=== PATIENT | female | born 1950 ===

== ENCOUNTER 2025-05-04 12:40 | Outpatient (AMB) | payer MEDICARE, SELFPAY ==
--- NOTE | 2025-05-04 12:50 | A.OFFVIS_ITS ---
Vital Signs 05/04/25 12:52 Height 5 ft 3 in Weight 184 lb 1.376 oz BMI 32.6 BP 142/64 H Blood Pressure Location Lt brachial Position Sitting Pulse 72 Pulse Source Pulse Oximeter Pulse Oximetry (%) 93 Oxygen Delivery Method Room Air Intake Visit Reasons: COPD Sr. Manager Marketing Required: No Accompanied by: Spouse Allergies aspirin Allergy (Unknown, Verified 05/04/25 12:54) Unknown HPI Comments Details: The patient is here for pulmonary evaluation. The patient is a 74 year woman with known COPD. She had been followed at [facility] for many years but then they stopped taking her insurance and she has been without a hoop coiler and a couple years. She has advanced COPD and chronic respiratory failure. The patient has had worsening respiratory symptoms with significant chest tightness and wheezing for the last several months. She did not up going to the ER at [facility] went her breathing got really bad. She was given a prednisone taper her breathing did improve. But right now her breathing is getting much worse again. She has a hard time walking without getting significantly winded. The patient also has issues with the cost of medications. Making it very difficult for her to afford her respiratory medications. The patient does have significant whee zing chest tightness and exam. She is given 2 DuoNeb treatments in the office she will receive Solu-Medrol. She did have a CT scan of the chest in 2022 at [facility] and it did compare her CAT scan to 1 from 2020 demonstrating stable subcentimeter pulmonary nodules she does have evidence of chronic bronchitis and also emphysema. [facility] Medical History (Updated 05/04/25 @ 20:23 by Roberth Shafer MD) Pulmonary nodules COPD (chronic obstructive pulmonary disease) Social History (Updated 05/04/25 @ 12:57 by Michaela Mello CMA) Patient Tobacco Use Status: Former Tobacco user Review of Systems Const Reports difficulty sleeping Eyes Reports no additional complaints ENT Reports nasal congestion and Reports nasal discharge Card Denies chest pain and Reports dyspnea on exertion Resp Reports chest congestion, Reports cough, Reports dyspnea on exertion and Reports wheezing GI Reports no additional complaints Musc Reports myalgias Skin/Breast Denies rash Neuro Reports no additional complaints Endo Reports no additional complaints Júnior/Lymph Reports no additional complaints Aller/Immun Reports wheezing Physical Exam Vital Signs: Last Vital Signs Pulse 72 05/04/25 12:52 BP 142/64 H 05/04/25 12:52 Pulse Ox 93 05/04/25 12:52 Oxygen Delivery Method Room Air 05/04/25 12:52 BMI result Body Mass Index 32.6 Const General: comfortable HEENT Head: Yes normocephalic Neck Neck: Yes supple Chest Chest palpation & inspection: normal inspection of the chest Resp Effort & Inspection: normal respiratory effort and prolonged expiratory phase Auscultation: rhonchi, wheezes and diminished lung sounds Cardio Heart sounds: S1 normal heart sound present and S2 normal heart sound present GI Palpation (GI): Soft to palpation Skin General skin exam: no rashes or lesions noted Extrem General: No clubbing and No cyanosis Office Procedures Nebulizer Treatment Nebulizer Treatment 28851-Ildtizdmn/MDI RX initial, or Nebulizer Subsequent Treatment Office Meds methylprednisolone sod suc(PF) 125 mg/2 mL solution for injection Performing Provider: Roberth Shafer MD Performing Location: [facility] Administered by: Es Vanegas LPN on 05/04/25 13:25 Dose Route Admin Location Dispensed Lot Number Expiration Date [facility] [place][NOTE 3] Mortgage Loan Assistant 125 mg IM R buttock 1 ea [id number] 08/07/27 0117-0661-71 [employer] Total Dispensed Waste 1 ea 0 % ipratropium 0.5 mg-albuterol 3 mg (2.5 mg base)/3 mL nebulization soln Performing Provider: Roberth Shafer MD Performing Location: [facility] Administered by: Es Vanegas LPN on 05/04/25 13:25 Dose Route Admin Location Dispensed Lot Number Expiration Date [facility] [place][NOTE 3] [employer] Loan [employer] 3 mL inhalation 3 mL [id number] 05/07/26 59535-024-09 [employer] Assessment & Plan Assessment & Plan (1) COPD (chronic obstructive pulmonary disease): Code(s): J44.9 - Chronic obstructive pulmonary disease, unspecified Category: Medical Qualifiers: COPD type: COPD with acute exacerbation Qualified Code(s): J44.1 - Chronic obstructive pulmonary disease with (acute) exacerbation (2) Pulmonary nodules: Comment: stable 2020 to 2022 Code(s): R91.8 - Other nonspecific abnormal finding of lung field Category: Medical Plan DUoneb QID Budesonide BID Start Azithromycin MWF Solumedrol 125mg IM x 1, then prednisone taper F/U 2 months Orders: Orders AMB Methylprednisolone Sod Succ Injection Today J44.9 - Chronic obstructive pulmonary disease, unspecified AMB Nebulizer Treatment Today J44.9 - Chronic obstructive pulmonary disease, unspecified Medications: New azithromycin Take 1 tablet on Saturday/Saturday/Saturday 250 mg PO 3XW 12 tabs 1RF 28 days K21.9 - Gastro-esophageal reflux disease without esophagitis ipratropium-albuterol 0.5 mg-3 mg(2.5 mg base)/3 mL 3 mL inhalation QID 360 mL 11RF 30 days J44.9 - Chronic obstructive pulmonary disease, unspecified budesonide 0.5 mg (2 mL) inhalation BID 120 mL 11RF 30 days J44.9 - Chronic obstructive pulmonary disease, unspecified prednisone PO daily; Take 6 tabs daily x 3 days, then 5 tabs x 3 days, then 4 tabs x 3 days, then 3 tabs x 3 days, then 2 tabs daily x 3 days, then 1 tab x 3 days to complete. 63 tabs 0RF 18 days Coding Level of Care Code New Pt Level 5 (71021) Diagnoses Chronic obstructive pulmonary disease with acute exacerbation J44.1 COPD type: COPD with acute exacerbation Pulmonary nodules R91.8 CPT Codes Nebulizer Treatment - Nebulizer Treatment, initial or subsequent: 50949- Nebulizer/MDI RX initial, or Nebulizer Subsequent Treatment ([id number]) Time Spent (min) 60
[2025-05-04 12:52] VITALS: BP 142/64; PULSE 72; O2SAT 93; BMI 32.6
--- OUTSIDE RECORDS SUMMARY | 2025-05-04 15:56 | XMS_ITS | Encounter Summary ---
Author Organization [facility] Address [address] [place] [address] Care Team Providers Care Education Program Manager Name Role Phone Physician, Pcp Unknown Primary Care Provider Hawa vailable Encounter Details Date Type Department Care Team (Late st Contact Info) Description 03/25/2025 Lab Requisition [facility] [address] [facility] [place] [address] Jennifer Hilario MD [address] [facility] [address] [place] [address] Acute vaginitis Social History Tobacco Use Types Packs/Day Years Used Date Smoking Tobacco: Former Cigarettes 0.5 49.2 1 - 07/08/2014 Smokeless Tobacco: Former Alcohol Use Standard Drinks/Week Comments No 0 (1 standard drink = 0.6 oz pur e alcohol) Comments Unknown Sex and Gender Information Value Date Recorded Sex Assigned at Not on file Legal Sex Female 10:15 AM EST Gender Identity Not on file Sexual Orientation Not on file documented as of this encounter Plan of Treatment Not on file documented as of this encounter Procedures Procedure Name Priority Date/Time Associated Diagnosis Comments VAGINITIS PATHOGENS BY PCR Routine 03/25/2025 12:00 AM EDT Acute vaginitis documented in this encounter Results * Vaginitis pathogens molecular study (03/25/2025 12:00 AM EDT) Trichomonas vaginalis Negative Negative 03/26/2025 12:09 PM EDT [facility] Gardnerella vaginalis Negative Negative 03/26/2025 12:09 PM EDT [facility] Juanis Species Negative Negative 12:09 PM EDT [facility] Swab Vaginal structure / Unknown 03/25/2025 03/25/2025 6:00 PM EDT us Jennifer Hilario MD LAB MICROBIOLOGY - GENER AL ORDERABLES Final Result [facility] [address] [place] [address], documented in this encounter Visit Diagnoses Diagnosis Acute vaginitis Unspecified vaginitis and vulvovaginitis documented in this encounter Care Teams Education Program Manager Relationship Specialty Start Date End Date Physician, Pcp Unknown PCP - General 03/06/25 documented as of this encounter
--- OUTSIDE RECORDS SUMMARY | 2025-05-04 15:56 | XMS_ITS ---
Author Name [facility] Organization Unknown Care Team Organization Name Specialty Phone Email Start Date End Da te [facility] KULWANT EVANGELISTA Primary Care 05/15/2022 02/24/20 24
--- OUTSIDE RECORDS SUMMARY | 2025-05-04 15:56 | XMS_ITS | Clinical Summary ---
Author Organization [facility] Address [address] [place] [address] Phone Care Team Providers Care Prism Inspector Name Role Phone Physician, Pcp Unknown Primary Care Provider Hawa vailable Allergies Active Allergy Reactions Criticality Noted Date Comments Aspirin 07/03/2011 Medications fluticasone-herman meterol (ADVAIR DISKUS) 250-50 mcg/dose diskus inhaler Inhale 1 puff by mouth 2 (two) times a day. 4 Active fluticasone propionate (FLONASE) 50 mcg/actuation nasal spray Administer 2 sprays into each nostril 1 (one) time each day. 3 Active fluticasone furoate-vilante roL (BREO ELLIPTA) 200-25 mcg/dose inhaler Inhale 1 puff by mouth 1 (one) time each day. 4 Active furosemide (LASIX) 20 mg tablet Take 1 tablet (20 mg total) by mouth 1 (one) time each day. 3 Active mirabegron (MYRBETRIQ) 25 mg 24 hr tablet Take 1 tablet (25 mg total) by mouth 1 (one) time each day. Active neomycin-colist in-hydrocortiso ne-thonzonium (CORTISPORIN TC) 3.3-3-10-0.5 mg/mL otic suspension Administer 3 drops into each ear 3 (three) times a day. Active nortriptyline (PAMELOR) 25 mg capsule Take 1 capsule (25 mg total) by mouth at bedtime. 3 Active albuterol HFA (PROAIR HFA ; PROVENTIL HFA ; VENTOLIN HFA) 90 mcg/actuation inhaler INHALE 2 PUFFS INTO THE LUNGS EVERY 6 HOURS NEEDED FOR COUGH OR WHEEZING FOR UP TO 30 DAYS 8.5 each 2 4 Active Linzess 290 mcg capsule Take 1 capsule (290 mcg total) by mouth 1 (one) time each day. 4 Active naproxen (NAPROSYN) 500 mg tablet Take 1 tablet (500 mg total) by mouth 1 (one) time each day. with food 4 Active losartan (COZAAR) 50 mg tablet TAKE 1 TABLET BY MOUTH EVERY DAY 30 tablet 5 5 Active methocarbamoL (ROBAXIN) 500 mg tablet Take 1 tablet (500 mg total) by mouth 1 (one) time each day if needed for muscle spasms. 30 tablet 3 5 Active traZODone (DESYREL) 100 mg tablet Take 1 tablet (100 mg total) by mouth at bedtime. at bedtime 90 tablet 1 5 Active albuterol 2.5 mg /3 mL (0.083 %) nebulizer solution TAKE 1 VIAL BY NEBULIZATION EVERY 4 HOURS NEEDED FOR WHEEZING FOR UP TO 30 DAYS. 360 mL 1 5 Active amLODIPine (NORVASC) 5 mg tablet TAKE 1 TABLET BY MOUTH EVERY DAY 90 tablet 1 5 Active Active Problems Problem Noted Date Diagnosed Date Edema 03/16/2021 Hypertension 03/16/2021 Abnormal glucose 02/02/2021 Depression 04/01/2018 Pulmonary emphysema ([facility] V24, [facility] V28) 0 04/01/2018 COPD (chronic obstructive pu lmonary disease) ([facility] V24, [facility] V28) 01/30/2018 Type 2 diabetes mellitus without complication Overview (04/07/2025): 04/07/25 Regulatory IMO Update Bipolar disorder ([facility] V24, [facility] V28) 03/2018 Anxiety 03/26/2017 Asthma 03/26/2017 GERD (gastroesophageal reflux disease) 7 Panic attacks 03/26/2017 Irritable bowel syndrome 02/14/2017 Obstructive sleep apnea syndrome 02/14/2017 Pulmonary nodule 10/08/2016 Gait disturbance 07/19/2016 Helicobacter pylori infection 07/12/2016 Bowel incontinence 01/31/2015 Overview (04/22/2024): And urinary incontinence 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 [address] [place] [address] Demarco Wiggins MD Acute exacerbation of chronic obstructive pulmonary disease (COPD) [place] [place] [facility] [place] (Primary Dx); Hypomagnesemia; Hypertension, unspecified type Discharge Disposition: Home or Self Care 02/26/2025 Telephone Pulmonology - [place] [address] [facility] [address] [place] [address] Marietta Ty MD from Last 3 Months Immunizations Immunization Administration Dates Next Due Influenza trivalent, 0.5mL ( Fluad) 65yo and older 02/21/2023,05/05/2018 [employer] SARS-CoV-2 COVID-19, mRNA, LNP-S, preservative free 04/04/2023,08/04/2021,11/25/2020,11/04 Pneumococcal conjugate 13 va lent (Prevnar 13, PCV13) 2mo and older 04/29/2015 Pneumococcal polysaccharide 23 valent (Pneumovax 23) 2yo and older 08/08/2011 Surgical History Surgery Date Site/Laterality Comments KNEE SURGERY Left PROCEDURE: HISTORICAL KNEE SURGERY; COMMENT: arthroscopy HYSTERECTOMY PROCEDURE: HISTORICAL TOTAL HYSTERECTOMY WITH BSO COLONOSCOPY 06/15/2020 PROCEDURE: HISTORICAL COLONOSCOPY; COMMENT: negative Medical History Medical History Date Comments Allergic rhinitis 11/22/2011 DX:Allergic rh initis 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 DX:A nal sphincter incompetence Anxiety 03/26/2017 DX:Anxiety Asthma 03/26/2017 DX:Asthma Bipolar disorder ([facility] V2 4, [facility] [place]) 01/13/2018 DX:Bipolar disorder ([facility]) Bowel incontinence 01/31/2015 DX:Bowel inco ntinence; COMMENT: And urinary incontinence COPD (chronic obstructive pu lmonary disease) [place] [place] [facility] [place]) 01/30/2018 DX:COPD (chronic o bstructive pulmonary disease) ([facility]) Depression 04/01/2018 DX:Depression Fatty liver 03/29/2014 DX:Fatty liver Gait disturbance 07/19/2016 DX:Gait disturb ance GERD (gastroesophageal reflu x disease) 03/26/2017 DX:GERD (gastroesophageal re flux disease) Helicobacter pylori infection 07/12/2016 DX :Helicobacter pylori infection Insomnia 04/14/2013 DX:Insomnia Irritable bowel syndrome 02/14/2017 DX:Irri table bowel syndrome Obstructive chronic bronchit is ([facility] [place] [facility] [place]) 04/14/2013 DX:Obstructive chronic bron chitis (HCC) Obstructive sleep apnea 02/14/2017 DX:Obstr uctive sleep apnea Panic attacks 03/26/2017 DX:Panic attacks Pulmonary emphysema ([facility] [place], [facility] [place]) 04/01/2018 DX:Pulmonary emphysema ([facility]) Pulmonary nodule 10/08/2016 DX:Pulmonary no dule Type 2 diabetes mellitus wit hout complication 01/30/2018 DX:Type 2 diabetes mellitus without complication (HCC) History of hepatitis B virus infection 04/24/2018 DX:History of hepatitis B vi charisse infection Social History Tobacco Use Types Packs/Day Years [...] on file Sexual Orientation Not on file Obstetrics History Last Filed Vital Signs Vital Sign Reading Time Taken Comments Blood Pressure 151/52 03/06/2025 6:39 PM EDT Pulse 88 03/06/2025 6:39 PM EDT Temperature 37.1 C (98.7 F) 03/06/2025 6:39 PM EDT Respiratory Rate 22 03/06/2025 6:39 PM EDT Oxygen Saturation 94% 03/06/2025 6:39 PM EDT Inhaled Oxygen Concentration - - Weight 88 kg (194 lb) 03/06/2025 2:15 PM EDT Height 160 cm (5' 3 ) 03/06/2025 2:15 PM EDT Body Mass Index 34.37 03/06/2025 2:15 PM EDT Plan of Treatment Health Maintenance Due Date Last Done Comments Diabetes: Annual Foot Exam 1960 Diabetes: Annual Retina Eye Exam 1960 Lung Cancer Screening (Low Dose CT) 06/11/2022 Osteoporosis Screening (Bone Density Screening) 06/11/2022 Social Influencers of Health Screening 06/11/2022 Depression Screening 07/08/2024 08/22/2023 Falls Risk Assessment 08/22/2024 08/22/2023 Medicare Annual Wellness Visit 08/22/2024 08/22/2023 COVID-19 Vaccine ( season) 2025 04/18/2024, 09/14/2023, 04/04/2023, Additional history exists Influenza Vaccine (#1) 2025 , 02/21/2023, 04/24/2022, Additional history exists Diabetes: Blood Sugar Control Test (HGBA1C) 08/19/2025 02/16/2025, 10/15/2024, 03/12/2024, Additional history exists Diabetes: Annual Urine Albumin-Creatinine Ratio (uACR) 10/15/2025 10/15/2024 Breast Cancer Screening 01/22/2026 01/23/20 24, 10/18/2022, 10/04/2021, Additional history exists Diabetes: Annual GFR (Glomerular Filtration Rate) 03/06/2026 03/06/2025, 02/16/2025, 10/15/2024, Additional history exists Hypertension/CHF/CAD Annual BMP Blood Test 03/06/2026 03/06/2025, 02/16/2025, 10/15/2024, Additional history exists Cholesterol Screening (Lipid Panel) 10/15/2029 10/15/2024, 03/12/2024, 03/12/2024 Colorectal Cancer Screening: Colonoscopy 06/15/2030 06/15/2020 DTaP,Tdap,and Td Vaccines (2 - Td or Tdap) 08/29/2034 08/29/2024 Pneumococcal Vaccine: 50+ Years Completed 04/24/2022, 04/29/2015, 08/08/2011 RSV Immunization Adult Patients Completed 06/04/2023 Hepatitis C Screening Completed 09/06/2023 Zoster Vaccines Completed 09/14/2023, 12/06, 03/22/2016 HIB Vaccines Aged Out No longer eligi ble based on patient's age to complete this topic HPV Vaccines Aged Out No longer eligi ble based on patient's age to complete this topic Hepatitis A Vaccines Aged Out No long er eligible based on patient's age to complete this topic Hepatitis B Vaccines Aged Out No long er eligible based on patient's age to complete this topic IPV Vaccines Aged Out No longer eligi ble based on patient's age to complete this topic MMR Vaccines Aged Out No longer eligi ble based on patient's age to complete this topic Meningococcal ACWY Vaccine Aged Out N o longer eligible based on patient's age to complete this topic Meningococcal B Vaccine Aged Out No l onger eligible based on patient's age to complete this topic RSV Immunization Patients Under 20 months Aged Out No longer eligible based on patient's age to complete this topic Varicella Vaccines Aged Out No longer eligible based on patient's age to complete this topic Procedures Procedure Name Priority Date/Time Associated Diagnosis Comments VAGINITIS PATHOGENS BY PCR Routine 03/25/2025 12:00 AM EDT Acute vaginitis ECG ANNOTATED 03/09/2025 RHYTHM ECG, REPORT Routine 03/06/2025 6: 24 PM EDT CULTURE BLOOD STAT 03/06/2025 4:31 PM EDT RESPIRATORY VIRUS PANEL MOLECULAR STUDY STAT 03/06/2025 4:08 PM EDT B-TYPE NATRIURETIC PEPTIDE STAT 03/06/2025 4:07 PM EDT PROTHROMBIN TIME WITH INR STAT 03/06/2025 4:07 PM EDT LACTATE, WITH REFLEX STAT 03/06/2025 4:07 PM EDT TROPONIN I HIGH SENSITIVITY Timed 03/06/2025 4:07 PM EDT CULTURE BLOOD STAT 03/06/2025 4:07 PM EDT XR CHEST 2 VIEWS STAT 03/06/2025 2:48 PM EDT ECG 12-LEAD STAT 03/06/2025 2:40 PM EDT MAGNESIUM STAT Add-on 03/06/2025 2:31 PM EDT HEPATIC FUNCTION PANEL STAT Add-on 03/06/2025 2:31 PM EDT CBC WITH AUTO DIFFERENTIAL STAT 03/06/2025 2:31 PM EDT TROPONIN I HIGH SENSITIVITY Timed 03/06/2025 2:31 PM EDT BASIC METABOLIC PANEL STAT 03/06/2025 2:31 PM EDT CBC AND DIFFERENTIAL STAT 03/06/2025 2:31 PM EDT HO URINE CULTURE TUBE Routine 02/16/2025 12:12 PM EDT Acute hemorrhagic cystitis Diabetes mellitus ([facility] V24, [facility] V28) Encounter for general adult medical examination with abnormal findings Unspecified urinary incontinence URINALYSIS WITH REFLEX MICROSCOPIC AND CULTURE Routine 02/16/2025 12:12 PM EDT Acute hemorrhagic cystitis Diabetes mellitus ([facility] V24, [facility] V28) Encounter for general adult medical examination with abnormal findings Unspecified urinary incontinence URINALYSIS WITH REFLEX MICROSCOPIC AND CULTURE Routine 02/16/2025 12:12 PM EDT Acute hemorrhagic cystitis Diabetes mellitus ([facility] V24, [facility] V28) Encounter for general adult medical examination with abnormal findings Unspecified urinary incontinence HEMOGLOBIN A1C Routine 02/16/2025 12:12 PM EDT Acute hemorrhagic cystitis Diabetes mellitus ([facility] V24, [facility] V28) Encounter for general adult medical examination with abnormal findings Unspecified urinary incontinence COMPLETE BLOOD COUNT Routine 02/16/2025 12:12 PM EDT Acute hemorrhagic cystitis Diabetes mellitus ([facility] V24, [facility] V28) Encounter for general adult medical examination with abnormal findings Unspecified urinary incontinence COMPREHENSIVE METABOLIC PANEL Routine 02/16/2025 12:12 PM EDT Acute hemorrhagic cystitis Diabetes mellitus ([facility] V24, [facility] V28) Encounter for general adult medical examination with abnormal findings Unspecified urinary incontinence CULTURE URINE Routine 02/16/2025 12:12 PM EDT Acute hemorrhagic cystitis Diabetes mellitus ([facility] V24, [facility] V28) Encounter for general adult medical examination with abnormal findings Unspecified urinary incontinence MICROALBUMIN CREATININE URINE RATIO Routine 10/15/2024 3:17 PM EDT Routine medical exam LIPID PANEL WITH REFLEX TO DIRECT LDL Routine 10/15/2024 3:08 PM EDT Routine medical exam [facility] SCREENING DIGITAL Routine 01/23/2024 8:48 AM EDT Encounter for screening mammogram for malignant neoplasm of breast HEPATITIS C SCREENING Routine 09/06/2023 DEPRESSION SCREENING Routine 08/22/2023 FALLS RISK ASSESSMENT Routine 08/22/2023 COLONOSCOPY Routine 06/15/2020 from Last 3 Months or Most Recently Relevant to Health Maintenance Results * Vaginitis pathogens molecular study (03/25/2025 12:00 AM EDT) Trichomonas vaginalis Negative Negative 03/26/2025 12:09 PM EDT [facility] Gardnerella vaginalis Negative Negative 03/26/2025 12:09 PM EDT [facility] Juanis Species Negative Negative 12:09 PM EDT [facility] Swab Vaginal structure / Unknown 03/25/2025 03/25/2025 6:00 PM EDT Jennifer Hilario MD LAB MICROBIOLOGY - GENER AL ORDERABLES Final Result [facility] [address] [place] [address], [place] [phone] * ECG-Annotated (03/09/2025) us Provider Onbase ECG ORDERABLES Final Result * RHYTHM ECG, REPORT (03/06/2025 6:24 PM EDT) Narrative Demarco Wiggins MD - 03/06/2025 6:24 PM EDT Demarco Wiggins MD 03/06/2025 6:32 PM ECG Rhythm Interpretation and Report Date/Time: 03/06/2025 6:24 PM Performed by: Demarco Wiggins MD Authorized by: Demarco Wiggins MD ECG interpreted by ED Physician in the absence of a tank car repairer: yes Previous ECG: Previous ECG: Compared to current Similarity: Changes noted Interpretation: Interpretation: non-specific Quality: Tracing quality: Limited by artifact Rate: ECG rate assessment: normal Rhythm: Rhythm: sinus rhythm Ectopy: Ectopy: PVCs QRS: QRS axis: Normal Comments: EKG shows sinus rhythm at 87 and frequent unifocal PVCs, with no ST changes, no T wave inversions, normal axis, poor R wave progression, interval development of ventricular ectopy compared with EKG from 05/18/2023, otherwise unchanged, independently reviewed and interpreted contemporaneously by me is an abnormal but not necessarily ischemic EKG. us Demarco Wiggins MD ECG ORDERABLES Final Result * Blood Culture, Peripheral #2 (03/06/2025 4:31 PM EDT) Only the most recent of2 resultswithin the time period is included. [facility] Culture, Blood No growth at 5 days 03/11/2025 5:01 PM EDT [facility] Blood Venous blood specimen / Unknown Venipuncture / Unknown 03/06/2025 4:31 PM EDT 03/06/2025 4:34 PM EDT us Demarco Wiggins MD LAB MICROBIOLOGY - GENERAL ORD ERABLES Final Result [facility] [address] [place] [address], [place] [phone] * Respiratory virus panel molecular study (03/06/2025 4:08 PM EDT) [facility] Adenovirus Detection by PCR Not Detected Not Detected LAB MICROBIOLOGY METHOD 03/06/2025 5:10 PM EDT [facility] Influenza A PCR Not Detected Not Detected LAB MICROBIOLOGY METHOD 03/06/2025 5:10 PM EDT [facility] Influenza B PCR Not Detected Not Detected LAB MICROBIOLOGY METHOD 03/06/2025 5:10 PM EDT [facility] Coronavirus 229E Not Detected Not Detected LAB MICROBIOLOGY METHOD 03/06/2025 5:10 PM EDT [facility] Coronavirus HKU1 Not Detected Not Detected LAB MICROBIOLOGY METHOD 03/06/2025 5:10 PM EDT [facility] Coronavirus OC43 Not Detected Not Detected LAB MICROBIOLOGY METHOD 03/06/2025 5:10 PM EDT [facility] Coronavirus NL63 Not Detected Not Detected LAB MICROBIOLOGY METHOD 03/06/2025 5:10 PM EDT [facility] Parainfluenza Virus 1 Not Detected Not Detected LAB MICROBIOLOGY METHOD 03/06/2025 5:10 PM EDT [facility] Parainfluenza Virus 2 Not Detected Not Detected LAB MICROBIOLOGY METHOD 03/06/2025 5:10 PM EDT [facility] Parainfluenza Virus 3 Not Detected Not Detected LAB MICROBIOLOGY METHOD 03/06/2025 5:10 PM EDT [facility] Parainfluenza Virus 4 Not Detected Not Detected LAB MICROBIOLOGY METHOD 03/06/2025 5:10 PM EDT [facility] RSV PCR Not Detected Not Detected LAB MICROBIOLOGY METHOD 03/06/2025 5:10 PM EDT [facility] Human Metapneumovirus A and B Not Detected Not Detected LAB MICROBIOLOGY METHOD 03/06/2025 5:10 PM EDT [facility] Rhinovirus/Entero virus Not Detected Not Detected LAB MICROBIOLOGY METHOD 03/06/2025 5:10 PM EDT [facility] Bordetella pertussis Not Detected Not Detected LAB MICROBIOLOGY METHOD 03/06/2025 5:10 PM EDT [facility] Bordetella parapertussis Not Detected Not Detected LAB MICROBIOLOGY METHOD 03/06/2025 5:10 PM EDT [facility] Mycoplasma pneumo by PCR Not Detected Not Detected LAB MICROBIOLOGY METHOD 03/06/2025 5:10 PM EDT [facility] Chlamydia pneumoniae Not Detected Not Detected LAB MICROBIOLOGY METHOD 03/06/2025 5:10 PM EDT [facility] SARS COV-2 Not Detected Not Detected LAB MICROBIOLOGY METHOD 03/06/2025 5:10 PM EDT [facility] Swab Nasopharyngeal structure / Unknown Non-blood Collection / Unknown 03/06/2025 4:08 PM EDT 03/06/2025 4:13 PM EDT [facility] - 03/06/2025 5:10 PM EDT Testing was performed using the [employer] Respiratory Pathogen PCR Assay. All results must be correlated with the clinical findings. Results should not be used as the sole basis for diagnosis. False Negative results may occur from the presence of sequence variants in the region targeted by the assay or the presence of inhibitors. Results may be affected by concurrent antiviral/antimicrobial therapy or levels of organisms that are below the limit of detection. us Demarco Wiggins MD LAB MICROBIOLOGY - GENERAL ORD ERABLES Final Result Performing Organization Address [facility]/ZIP Co de Phone Number [facility] [address] [place] [address], [place] [phone] * Lactate, with reflex (03/06/2025 4:07 PM EDT) [facility] LACTIC ACID 1.1 0.4 - 2.0 mmol/L LAB CHEMISTRY METHOD 03/06/2025 4:41 PM EDT [facility] Blood Venous blood specimen / Unknown Venipuncture / Unknown 03/06/2025 4:07 PM EDT 03/06/2025 4:11 PM EDT us Demarco Wiggins MD LAB BLOOD ORDERABLES Final Res ult Performing Organization Address [facility]/ZIP Co de Phone Number [facility] [address] [place] [address], [place] [phone] * Troponin I high sensitivity (03/06/2025 4:07 PM EDT) Only the most recent of2 resultswithin the time period is included. [facility] High Sensitivity Troponin I 9 <=54 ng/L LAB CHEMISTRY METHOD 03/06/2025 4:41 PM EDT [facility] Blood Venous blood specimen / Unknown Venipuncture / Unknown 03/06/2025 4:07 PM EDT 03/06/2025 4:13 PM EDT Narrative [facility] - 03/06/2025 4:41 PM EDT High levels of biotin in samples may falsely decrease hsTroponin values. Use caution when interpreting hsTroponin results in patients taking biotin who exhibit renal impairment (eGFR <60) or in patients taking more than 20 mg/day of biotin. us Demarco Wiggins MD LAB BLOOD ORDERABLES Final Res ult Performing Organization Address City/[facility]/ZIP Co de Phone Number [facility] [address] [place] [address], [place] [phone] * Prothrombin time with INR (03/06/2025 4:07 PM EDT) Pathologist [facility] Protime 11.6 10.6 - 13.9 sec LAB COAGULATION METHOD 03/06/2025 5:00 PM EDT [facility] INR 0.9 LAB COAGULATION METHOD 03/06/2025 5:00 PM EDT [facility] Blood Venous blood specimen / Unknown Venipuncture / Unknown 03/06/2025 4:07 PM EDT 03/06/2025 4:13 PM EDT us Demarco Wiggins MD LAB BLOOD ORDERABLES Final Res ult Performing Organization Address [facility] Co de Phone Number [facility] [address] [place] [address], [place] [phone] * B-type natriuretic peptide (03/06/2025 4:07 PM EDT) Pathologist [facility] BNP 12 <=100 pcg/mL LAB CHEMISTRY METHOD 03/06/2025 4:48 PM EDT [facility] Blood Venous blood specimen / Unknown Venipuncture / Unknown 03/06/2025 4:07 PM EDT 03/06/2025 4:13 PM EDT us Demarco Wiggins MD LAB BLOOD ORDERABLES Final Res ult Performing Organization Address City/[facility]/ZIP Co de Phone Number [facility] [address] [place] [address], [place] [phone] * XR Chest 2 Views (03/06/2025 2:48 PM EDT) Anatomical Region Laterality Modality Body Radiographic Hailey ging 03/06/2025 3:12 PM EDT Impressions 03/06/2025 3:14 PM EDT No acute pneumonia. No alveolar edema. Vascular congestion might be partially obscured if there is underlying hyperinflation. -------- FINAL REPORT -------- Dictated By: Aftab Alfonso Dictated Date: 03/06/2025 15:12 ET Assigned Physician: Aftab Alfonso Reviewed and Electronically Signed By: Aftab Alofnso Signed Date: 03/06/2025 15:14 ET Workstation ID: [id number] Transcribed By: Self Edit Transcribed Date: 03/06/2025 15:12 ET Narrative 03/06/2025 3:14 PM EDT EXAMINATION: CHEST CLINICAL INFORMATION: Dyspnea COMPARISON: Frontal view 05/18/23 TECHNIQUE: 2 views of the chest FINDINGS: Mild rotation toward the left. There is some calcification of the aortic arch. The cardiac size is within normal limits and unchanged. No mediastinal mass demonstrated. The central vessels are prominent but there is no alveolar edema. The lung volumes are maintained. There is some flattening of the diaphragm with a wide AP diameter of the chest. There is no consolidation. There is some apical thickening which is unchanged and likely postinflammatory. There is osteopenia. There is a surgical anchor associated with the right proximal humerus and a small amount of adjacent soft tissue calcification. Procedure Note Aftab Alfonso MD - 03/06/2025 EXAMINATION: CHEST CLINICAL INFORMATION: Dyspnea COMPARISON: Frontal view 05/18/23 TECHNIQUE: 2 views of the chest FINDINGS: Mild rotation toward the left. There is some calcification of the aorticarch. The cardiac size is within normal limits and unchanged. Nomediastinal mass demonstrated. The central vessels are prominent but thereis no alveolar edema. The lung volumes are maintained. There is someflattening of the diaphragm with a wide AP diameter of the chest. There is no consolidation. There is some apical thickening which isunchanged and likely postinflammatory. There is osteopenia. There is a surgical anchor associated with the rightproximal humerus and a small amount of adjacent soft tissuecalcification. IMPRESSION: No acute pneumonia. No alveolar edema. Vascular congestion might be partially obscured if there is underlyinghyperinflation. -------- FINAL REPORT -------- Dictated By: Aftab Alfonso Dictated Date: 03/06/2025 15:12 ET Assigned Physician: Aftab Alfonso Reviewed and Electronically Signed By: Aftab Alfonso Signed Date: 03/06/2025 15:14 ET Workstation ID: [id number] Transcribed By: Self Edit Transcribed Date: 03/06/2025 15:12 ET Demarco Wiggins MD IMG XR PROCEDURES Final Result * ECG 12 lead (03/06/2025 2:40 PM EDT) Ventricular Rate ECG 86 BPM GEMUSE Atrial Rate 86 BPM GEMUSE P-R Interval 170 ms GEMUSE QRS Duration 76 ms GEMUSE Q-T Interval 366 ms GEMUSE QTc 437 ms GEMUSE P Wave [place] 119 degrees GEMUSE R [place] 9 degrees GEMUSE T [place] 53 degrees GEMUSE ECG Interpretation Normal sinus rhythm Junctional ST depression, probably normal Borderline ECG When compared with ECG of 06-MAR-2025 14:39, (unconfirmed) Sinus rhythm has replaced Junctional rhythm Confirmed by Augie LAWSON JAMES ([id number]) on 03/07/2025 3:31:46 PM GEMUSE 03/06/2025 2:40 PM EDT 03/07/2025 3:31 PM EDT Demarco Wiggins MD ECG ORDERABLES Final Result GEMUSE * (ABNORMAL) CBC auto differential (03/06/2025 2:31 PM EDT) WBC 8.9 4.8 - 10.8 K/[facility] LAB HEMETOLOGY METHOD 03/06/2025 2:43 PM EDT [facility] RBC 4.90(H) 3.80 - 4.80 M/[facility] LAB HEMETOLOGY METHOD 03/06/2025 2:43 PM EDT [facility] Hemoglobin 15.1 11.5 - 16.0 g/dL LAB HEMETOLOGY METHOD 03/06/2025 2:43 PM [facility] Hematocrit 45.9 35.0 - 47.0 % LAB HEMETOLOGY METHOD 03/06/2025 2:43 PM [facility] MCV 93.7 79.0 - 98.0 FL LAB HEMETOLOGY METHOD 03/06/2025 2:[facility] MCH 30.8 27.0 - 32.0 pcg LAB HEMETOLOGY METHOD 03/06/2025 2:43 PM [facility] MCHC 32.9 32.0 - 37.0 g/dL LAB HEMETOLOGY METHOD 03/06/2025 2:43 PM [facility] RDW 13.0 11.0 - 15.0 % LAB HEMETOLOGY METHOD 03/06/2025 2:43 PM [facility] Platelets 255 130 - 400 K/mcL LAB HEMETOLOGY METHOD 03/06/2025 2:43 PM [facility] MPV 10.6 7.0 - 11.0 FL LAB HEMETOLOGY METHOD 03/06/2025 2:43 PM [facility] NRBC 0.0 <1.0 % LAB HEMETOLOGY METHOD 03/06/2025 2:43 PM [facility] NRBC Absolute 0.00 <0.10 K/mcL LAB HEMETOLOGY METHOD 03/06/2025 2:43 PM [facility] Neutrophils Relative 58.7 % LAB HEMETOLOGY METHOD 03/06/2025 2:43 PM [facility] Lymphocytes Relative 28.4 % LAB HEMETOLOGY METHOD 03/06/2025 2:43 PM [facility] Monocytes Relative 6.1 % LAB HEMETOLOGY METHOD 03/06/2025 2:43 PM EDT [facility] Eosinophils Relative 5.5 % LAB HEMETOLOGY METHOD 03/06/2025 2:43 PM EDT [facility] Basophils Relative 0.7 % LAB HEMETOLOGY METHOD 03/06/2025 2:43 PM EDT [facility] Immature Granulocytes Relative 0.6 % LAB HEMETOLOGY METHOD 03/06/2025 2:43 PM EDT [facility] Neutrophils Absolute 5.24 1.50 - 7.00 K/mcL LAB HEMETOLOGY METHOD 03/06/2025 2:43 PM EDT [facility] Lymphocytes Absolute 2.53 1.00 - 5.00 K/mcL LAB HEMETOLOGY METHOD 03/06/2025 2:43 PM EDT [facility] Monocytes Absolute 0.54 0.20 - 1.00 K/mcL LAB HEMETOLOGY METHOD 03/06/2025 2:43 PM EDT [facility] Eosinophils Absolute 0.49 0.00 - 0.50 K/mcL LAB HEMETOLOGY METHOD 03/06/2025 2:43 PM EDT [facility] Basophils Absolute 0.06 0.00 - 0.20 K/mcL LAB HEMETOLOGY METHOD 03/06/2025 2:43 PM EDT [facility] Immature Granulocytes Absolute 0.05(H) 0.00 - 0.03 K/mcL LAB HEMETOLOGY METHOD 03/06/2025 2:43 PM EDT [facility] Blood Venous blood specimen / Unknown Venipuncture / Unknown 03/06/2025 2:31 PM EDT 03/06/2025 2:39 PM EDT us Demarco Wiggins MD LAB BLOOD ORDERABLES Final Res ult [facility] [address] [place] [address], [place] [phone] * (ABNORMAL) Magnesium (03/06/2025 2:31 PM EDT) [facility] Magnesium 1.7(L) 1.9 - 2.6 mg/dL LAB CHEMISTRY METHOD 03/06/2025 5:17 PM EDT [facility] Blood Venous blood specimen / Unknown Venipuncture / Unknown 03/06/2025 2:31 PM EDT 03/06/2025 2:39 PM EDT Demarco Wiggins MD LAB BLOOD ORDERABLES Final Res ult [facility] [address] [place] [address], [place] [phone] * (ABNORMAL) Hepatic function panel (03/06/2025 2:31 PM EDT) [facility] Total Protein 7.4 6.0 - 8.0 g/dL LAB CHEMISTRY METHOD 03/06/2025 5:17 PM EDT [facility] Albumin 4.1 3.2 - 5.0 g/dL LAB CHEMISTRY METHOD 03/06/2025 5:17 PM EDT [facility] Total Bilirubin 0.6 0.0 - 1.4 mg/dL LAB CHEMISTRY METHOD 03/06/2025 5:17 PM EDT [facility] Bilirubin, Direct 0.2 0.0 - 0.3 mg/dL LAB CHEMISTRY METHOD 03/06/2025 5:17 PM EDT [facility] Bilirubin, Indirect 0.4 0.0 - 1.1 mg/dL LAB CHEMISTRY METHOD 03/06/2025 5:17 PM EDT [facility] ALT (SGPT) 66(H) 10 - 60 unit/L LAB CHEMISTRY METHOD 03/06/2025 5:17 PM EDT [facility] AST (SGOT) 57(H) 10 - 42 unit/L LAB CHEMISTRY METHOD 03/06/2025 5:17 PM EDT [facility] Alkaline Phosphatase 93 42 - 121 unit/L LAB CHEMISTRY METHOD 03/06/2025 5:17 PM [facility] Blood Venous blood specimen / Unknown Venipuncture / Unknown 03/06/2025 2:31 PM EDT 03/06/2025 2:39 PM EDT us Demarco Wiggins MD LAB BLOOD ORDERABLES Final Res ult [facility] [address] [place] [address], [place] [phone] * (ABNORMAL) Basic metabolic panel (03/06/2025 2:31 PM EDT) Sodium 137 133 - 145 mmol/L LAB CHEMISTRY METHOD 03/06/2025 3:02 PM [facility] Potassium 4.6 3.5 - 5.5 mmol/L LAB CHEMISTRY METHOD 03/06/2025 3:02 PM [facility] Chloride 104 96 - 110 mmol/L LAB CHEMISTRY METHOD 03/06/2025 3:02 PM [facility] CO2 26 21 - 32 mmol/L LAB CHEMISTRY METHOD 03/06/2025 3:02 PM [facility] Anion Gap 7 3 - 11 LAB CHEMISTRY METHOD 03/06/2025 3:02 PM [facility] Glucose 115(H) 70 - 100 mg/dL LAB CHEMISTRY METHOD 03/06/2025 3:02 PM [facility] BUN 24 5 - 25 mg/dL LAB CHEMISTRY METHOD 03/06/2025 3:02 PM [facility] Creatinine 1.04 0.50 - 1.10 mg/dL LAB CHEMISTRY METHOD 03/06/2025 3:02 PM EDT [facility] eGFR 57(L) >=60 mL/min/1. 73m2 LAB CHEMISTRY METHOD 03/06/2025 3:02 PM EDT [facility] Comment:Calculation based on the Chronic Kidney Disease Epidemiology Collaboration (CKD-EPI) equation refit without adjustment for race. BUN/Creatinine Ratio 23.1 LAB CHEMISTRY METHOD 03/06/2025 3:02 PM EDT [facility] Calcium 9.7 8.5 - 10.5 mg/dL LAB CHEMISTRY METHOD 03/06/2025 3:02 PM EDT [facility] Blood Venous blood specimen / Unknown Venipuncture / Unknown 03/06/2025 2:31 PM EDT 03/06/2025 2:39 PM EDT us Demarco Wiggins MD LAB BLOOD ORDERABLES Final Res ult [facility] [address] [place] [address], [place] [phone] * (ABNORMAL) Urinalysis with reflex microscopic and culture (02/16/2025 12:12 PM EDT) Specific [place] Urine 1.031(H) 1.003 - 1.030 LAB URINALYSIS - AUTOMATED METHOD 02/16/2025 1:35 PM EDT [facility] pH, Urine 5.5 5.0 - 8.0 pH LAB URINALYSIS - AUTOMATED METHOD 02/16/2025 1:35 PM EDT [facility] Leukocytes, Urine Moderate(A) Negative LAB URINALYSIS - AUTOMATED METHOD 02/16/2025 1:35 PM [facility] Nitrite, Urine Negative Negative LAB URINALYSIS - AUTOMATED METHOD 02/16/2025 1:35 PM EDT [facility] Protein, Urine Trace <=Trace mg/dL LAB URINALYSIS - AUTOMATED METHOD 02/16/2025 1:35 PM [facility] Glucose, Urine Negative Negative mg/dL LAB URINALYSIS - AUTOMATED METHOD 02/16/2025 1:35 PM [facility] Ketones, Urine Trace(A) Negative mg/dL LAB URINALYSIS - AUTOMATED METHOD 02/16/2025 1:35 PM [facility] Urobilinogen , Urine 1.0 0.2 - 1.0 mg/dL LAB URINALYSIS - AUTOMATED METHOD 02/16/2025 1:35 PM [facility] Bilirubin, Urine Small(A) Negative LAB URINALYSIS - AUTOMATED METHOD 02/16/2025 1:35 PM [facility] Blood, Urine Negative Negative LAB URINALYSIS - AUTOMATED METHOD 02/16/2025 1:35 PM [facility] RBC, Urine 2.0 0 - 4 /HPF LAB URINALYSIS - AUTOMATED METHOD 02/16/2025 1:35 PM [facility] WBC, Urine 59.3(H) 0 - 4 /HPF LAB URINALYSIS - AUTOMATED METHOD 02/16/2025 1:35 PM [facility] Squamous Epithelial, Urine >100(H) 0 - 60 /LPF LAB URINALYSIS - AUTOMATED METHOD 02/16/2025 1:35 PM [facility] Crystals, Urine LT CALCIUM OXALATE /LPF LAB URINALYSIS - AUTOMATED METHOD 02/16/2025 1:35 PM [facility] Bacteria, Urine Few(A) Negative /HPF LAB URINALYSIS - AUTOMATED METHOD 02/16/2025 1:35 PM [facility] Hyaline Casts, Urine 10.0(H) 0 - 3 /LPF LAB URINALYSIS - AUTOMATED METHOD 02/16/2025 1:35 PM [facility] Mucus, Urine Large None /HPF LAB URINALYSIS - AUTOMATED METHOD 02/16/2025 1:35 PM [facility] Urine Urine specimen obtained by clean catch procedure / Unknown Non-blood Collection / Unknown 02/16/2025 12:12 PM EDT 02/16/2025 12:41 PM EDT Adela Church MANIPULATIVE THERAPY SPECIALIST LAB URINE ORDERABLES Final Res ult Performing Organization Address City/[facility]/ZIP Co de Phone Number [facility] [address] [place] [address], [place] [phone] * Ho urine culture tube (02/16/2025 12:12 PM EDT) Extra Tube Hold for add-ons. 02/16/2025 2:02 PM EDT [facility] Comment:Auto resulted. Urine Urine specimen obtained by clean catch procedure / Unknown Non-blood Collection / Unknown 02/16/2025 12:12 PM EDT 02/16/2025 12:41 PM EDT Adela Church MANIPULATIVE THERAPY SPECIALIST LAB URINE ORDERABLES Final Res ult Performing Organization Address [facility]/ZIP Co de Phone Number [facility] [address] [place] [address], [place] [phone] * (ABNORMAL) Complete blood count (02/16/2025 12:12 PM EDT) WBC 10.8 4.8 - 10.8 K/mcL LAB HEMETOLOGY METHOD 02/16/2025 12:48 PM EDT [facility] RBC 5.00(H) 3.80 - 4.80 M/mcL LAB HEMETOLOGY METHOD 02/16/2025 12:48 PM EDT [facility] Hemoglobin 15.1 11.5 - 16.0 g/dL LAB HEMETOLOGY METHOD 02/16/2025 12:48 PM EDT [facility] Hematocrit 47.4(H) 35.0 - 47.0 % LAB HEMETOLOGY METHOD 02/16/2025 12:48 PM EDT [facility] MCV 95.4 79.0 - 98.0 FL LAB HEMETOLOGY METHOD 02/16/2025 12:48 PM EDT [facility] MCH 30.4 27.0 - 32.0 pcg LAB HEMETOLOGY METHOD 02/16/2025 12:48 PM EDT [facility] MCHC 31.9(L) 32.0 - 37.0 g/dL LAB HEMETOLOGY METHOD 02/16/2025 12:48 PM EDT [facility] RDW 13.6 11.0 - 15.0 % LAB HEMETOLOGY METHOD 02/16/2025 12:48 PM EDT [facility] Platelets 225 130 - 400 K/mcL LAB HEMETOLOGY METHOD 02/16/2025 12:48 PM EDT [facility] MPV 11.1(H) 7.0 - 11.0 FL LAB HEMETOLOGY METHOD 02/16/2025 12:48 PM EDT [facility] NRBC 0.0 <1.0 % LAB HEMETOLOGY METHOD 02/16/2025 12:48 PM EDT [facility] NRBC Absolute 0.00 <0.10 K/mcL LAB HEMETOLOGY METHOD 02/16/2025 12:48 PM EDT [facility] Blood Venous blood specimen / Unknown Venipuncture / Unknown 02/16/2025 12:12 PM EDT 02/16/2025 12:40 PM EDT us Adela Church MANIPULATIVE THERAPY SPECIALIST LAB BLOOD ORDERABLES Final Res ult [facility] [address] [place] [address], * (ABNORMAL) Culture urine (02/16/2025 12:12 PM EDT) Culture, Urine 10,000-49,000 CFU/mL Citrobacter youngae(A) HERBER 02/18/2025 10:27 AM EDT [facility] Comment: This is an edited result. Previous organism was Gram negative bacilli on 02/17/2025 at 0751 EDT. Urine Urine specimen obtained by clean catch procedure / Unknown Non-blood Collection / Unknown 02/16/2025 12:12 PM EDT 02/16/2025 1:35 PM EDT Narrative Organism Antibiotic Method Susceptibility Citrobacter youngae Amoxicillin/Clavulanate HERBER 16 ug/ml: Resistant Citrobacter youngae Cefoxitin HERBER 32 ug/ml: Resistant Citrobacter youngae Ceftazidime HERBER <=0.5 ug/ml: Susceptible Citrobacter youngae Amikacin HERBER <=1 ug/ml: Susceptible Citrobacter youngae Gentamicin HERBER <=1 ug/ml: Susceptible Citrobacter youngae Ciprofloxacin HERBER <=0.06 ug/ml: Susceptible Citrobacter youngae Nitrofurantoin HERBER 32 ug/ml: Susceptible Citrobacter youngae Trimethoprim/Sulfamethoxazole HERBER <=20 ug/ml: Susceptible us Adela Church NP LAB MICROBIOLOGY - GENERAL ORD ERABLES Final Result [facility] [address] [place] [address], * (ABNORMAL) Hemoglobin A1c (02/16/2025 12:12 PM EDT) [facility] Hemoglobin A1C 6.5(H) <6.5 % LAB CHEMISTRY METHOD 02/16/2025 3:08 PM EDT [facility] Mean Bld Glu Estim. 140 mg/dL LAB CHEMISTRY METHOD 02/16/2025 3:08 PM EDT [facility] Blood Venous blood specimen / Unknown Venipuncture / Unknown 02/16/2025 12:12 PM EDT 02/16/2025 12:40 PM EDT us Adela Church MANIPULATIVE THERAPY SPECIALIST LAB BLOOD ORDERABLES Final Res ult [facility] [address] [place] [address], * (ABNORMAL) Comprehensive metabolic panel (02/16/2025 12:12 PM EDT) Sodium 139 133 - 145 mmol/L LAB CHEMISTRY METHOD 02/16/2025 1:36 PM EDT [facility] Potassium 4.6 3.5 - 5.5 mmol/L LAB CHEMISTRY METHOD 02/16/2025 1:36 PM [facility] Chloride 104 96 - 110 mmol/L LAB CHEMISTRY METHOD 02/16/2025 1:36 PM [facility] CO2 31 21 - 32 mmol/L LAB CHEMISTRY METHOD 02/16/2025 1:36 PM [facility] Anion Gap 4 3 - 11 LAB CHEMISTRY METHOD 02/16/2025 1:36 PM [facility] Glucose 101(H) 70 - 100 mg/dL LAB CHEMISTRY METHOD 02/16/2025 1:36 PM [facility] BUN 20 5 - 25 mg/dL LAB CHEMISTRY METHOD 02/16/2025 1:36 PM [facility] Creatinine 0.92 0.50 - 1.10 mg/dL LAB CHEMISTRY METHOD 02/16/2025 1:[facility] eGFR 65 >=60 mL/min/1. 73m2 LAB CHEMISTRY METHOD 02/16/2025 1:36 PM [facility] Comment:Calculation based on the Chronic Kidney Disease Epidemiology Collaboration (CKD-EPI) equation refit without adjustment for race. BUN/Creatinine Ratio 21.7 LAB CHEMISTRY METHOD 02/16/2025 1:36 PM [facility] Calcium 9.4 8.5 - 10.5 mg/dL LAB CHEMISTRY METHOD 02/16/2025 1:36 PM EDT [facility] AST (SGOT) 73(H) 10 - 42 unit/L LAB CHEMISTRY METHOD 02/16/2025 1:36 PM EDT [facility] ALT (SGPT) 75(H) 10 - 60 unit/L LAB CHEMISTRY METHOD 02/16/2025 1:36 PM EDT [facility] Alkaline Phosphatase 83 42 - 121 unit/L LAB CHEMISTRY METHOD 02/16/2025 1:36 PM EDT [facility] Total Protein 7.2 6.0 - 8.0 g/dL LAB CHEMISTRY METHOD 02/16/2025 1:36 PM EDT [facility] Albumin 3.9 3.2 - 5.0 g/dL LAB CHEMISTRY METHOD 02/16/2025 1:36 PM EDT [facility] Total Bilirubin 1.0 0.0 - 1.4 mg/dL LAB CHEMISTRY METHOD 02/16/2025 1:36 PM EDT [facility] Blood Venous blood specimen / Unknown Venipuncture / Unknown 02/16/2025 12:12 PM EDT 02/16/2025 12:40 PM EDT us Adela Church NP LAB BLOOD ORDERABLES Final Res ult [facility] [address] [place] [address], * (ABNORMAL) Microalbumin creatinine urine ratio (10/15/2024 3:17 PM EDT) Creatinine, Urine 270.0 mg/dL LAB CHEMISTRY METHOD 10/15/2024 4:37 PM EDT [facility] Microalb, Ur 54.5(H) 0.0 - 29.0 mg/L LAB CHEMISTRY METHOD 10/15/2024 4:37 PM EDT [facility] Microalb/Crea t Ratio 20 <30 mg/g creat LAB CHEMISTRY METHOD 10/15/2024 4:37 PM EDT [facility] Urine Urine specimen obtained by clean catch procedure / Unknown Non-blood Collection / Unknown 10/15/2024 3:17 PM EDT 10/15/2024 3:38 PM EDT us Howard MARQUIS LAB URINE ORDERABLES Final Res ult [facility] [address] [place] [address], [place] [phone] * Lipid panel with reflex to direct LDL (10/15/2024 3:08 PM EDT) Cholesterol 174 0 - 200 mg/dL LAB CHEMISTRY METHOD 10/15/2024 4:22 PM EDT [facility] Triglycerides 112 0 - 150 mg/dL LAB CHEMISTRY METHOD 10/15/2024 4:22 PM EDT [facility] HDL 65 >=40 mg/dL LAB CHEMISTRY METHOD 10/15/2024 4:22 PM EDT [facility] LDL Calculated 87 0 - 100 mg/dL LAB CHEMISTRY METHOD 10/15/2024 4:22 PM T [facility] VLDL Cholesterol Lele 22.4 mg/dL LAB CHEMISTRY METHOD 10/15/2024 4:22 PM EDT [facility] Non HDL Chol. (LDL+VLDL) 109 <145 mg/dL LAB CHEMISTRY METHOD 10/15/2024 4:22 PM EDT [facility] Chol/HDL Ratio 2.7 0.0 - 4.4 LAB CHEMISTRY METHOD 10/15/2024 4:22 PM T [facility] Blood Venous blood specimen / Unknown Venipuncture / Unknown 10/15/2024 3:08 PM EDT 10/15/2024 3:38 PM EDT us Howard MARQUIS LAB BLOOD ORDERABLES Final Res ult [facility] [address] [place] [address], * [facility] SCREENING DIGITAL (01/23/2024 8:48 AM EDT) Anatomical Region Laterality Modality Mammography 01/22/2024 2:39 PM EDT Narrative 01/23/2024 8:48 AM EDT [facility] Diagnostic Imaging Department [address] [place] [address] Patient: NENAMARIESARAH /Age/Sex: 1950 - 73 - F Unit#: [id number] [facility] Mnemonic/Ordering Site: [facility] Ordering Physician: JUAN CARLOS LEAL MD [facility] Screening Digital - 01/22/24 - Report Status:Signed EXAM: [facility] Screening Digital EXAM DATE AND TIME: 01/22/2024 3:02 PM HISTORY: Screening. Left breast biopsy in 2016, pathology benign. Patient reports 25 pound weight loss. Sister had breast carcinoma at age 52. COMPARISON: 10/13/22, 10/04/21, 09/21/20 TECHNIQUE: Bilateral digital breast tomosynthesis was performed in the CC and MLO projections. Computer aided detection with [employer] 3D 3.1 was employed. TISSUE DENSITY: b. There are scattered areas of fibroglandular density. FINDINGS: No suspicious masses, grouped microcalcifications, or areas of architectural distortion are seen. Few subcentimeter circumscribed nodules are again seen bilaterally, unchanged, benign. A biopsy marker is present in the inferior left breast. The skin and vascularity are unremarkable. IMPRESSION: Stable mammographic appearance of the breasts. No evidence of malignancy is seen. A negative mammogram in the presence of a clinically suspicious palpable abnormality does not preclude the possibility of malignancy or alter the indications for biopsy. BI-RADS: Category 2: Benign RECOMMENDATION(S): 1: Routine screening mammogram BILATERAL in 1 year. Dictating Physician: ELISA GUAN MD Electronically Signed by: ELISA GUAN MD Dic Date/Time: 01/23/24844 Sign date/Time: 01/23/24847 Procedure Note Elisa Guan MD - 04/22/2024 [facility] Diagnostic Imaging Department [address] [place] [address] Patient: SARAH COYLE Ant /Age/Sex: 1950 - 73 - F Unit#: [id number] [facility]/Ordering Site: [facility] Ordering Physician: JUAN CARLOS LEAL MD [facility] Screening Digital - 01/22/24 - Report Status:Signed EXAM: [facility] Screening Digital EXAM DATE AND TIME: 01/22/2024 3:02 PM HISTORY: Screening. Left breast biopsy in 2015, pathology benign.Patient reports 25 pound weight loss. Sister had breast carcinoma at age 52. COMPARISON: 10/13/22, 10/04/21, 09/21/20 TECHNIQUE: Bilateral digital breast tomosynthesis was performed in the CCand MLO projections. Computer aided detection with [employer] 3D 3.1was employed. TISSUE DENSITY: b. There are scattered areas of fibroglandular density. FINDINGS: No suspicious masses, grouped microcalcifications, or areas ofarchitectural distortion are seen. Few subcentimeter circumscribed nodules are againseen bilaterally, unchanged, benign. A biopsy marker is present in the inferiorleft breast. The skin and vascularity are unremarkable. IMPRESSION: Stable mammographic appearance of the breasts. No evidence of malignancyis seen. A negative mammogram in the presence of a clinically suspicious palpable abnormality does not preclude the possibility of malignancy or alter the indications for biopsy. BI-RADS: Category 2: Benign RECOMMENDATION(S): 1: Routine screening mammogram BILATERAL in 1 year. Dictating Physician: ELISA GUAN MD Electronically Signed by: ELISA GUAN MD Dic Date/Time: 01/23/24 0845 Sign date/Time: 01/23/24 0848 Result [facility] Juan Carlos Leal MD IMG BI PROCEDURES Final Result * Hepatitis C Screening (09/06/2023) [facility] Hepatitis C Screening Abstracted Result [facility] Provider HEALTH MAINTENANCE Final Result * Falls Risk Assessment (08/22/2023) [facility] Falls Risk Assessment Abstracted Result [facility] [place] [facility] MAINTENANCE Final Result * Depression Screening (08/22/2023) [facility] Depression Screening Abstracted Result [facility] Provider HEALTH MAINTENANCE Final Result * Colonoscopy (06/15/2020) [facility] Colonoscopy No interpretation , abstracted Anatomical Region Laterality Modality Other Result [facility] [place] [facility] MAINTENANCE Final Result from Last 3 Months or Most Recently Relevant to Health Maintenance Insurance [facility] on file Advance Directives Documents on File Type Date Recorded Patient Primary Teaching Assistant Expl anation Health Care Decision (hx) 01/18/2021 AD CHAVIRA DIRECTIVE Health Care Decision (hx) 01/18/2021 AD CHAVIRA DIRECTIVE Health Care Decision (hx) 01/18/2021 AD CHAVIRA DIRECTIVE Health Care Decision (hx) 01/18/2021 AD CHAVIRA DIRECTIVE Health Care Decision (hx) 01/18/2021 AD CHAVIRA DIRECTIVE Health Care Decision (hx) 01/18/2021 AD CHAVIRA DIRECTIVE Health Care Decision (hx) 01/18/2021 AD CHAVIRA DIRECTIVE Health Care Decision (hx) 01/18/2021 AD CHAVIRA DIRECTIVE Health Care Decision (hx) 01/18/2021 AD CHAVIRA DIRECTIVE Health Care Decision (hx) 01/18/2021 AD CHAVIRA DIRECTIVE Health Care Decision (hx) 01/18/2021 AD CHAVIRA DIRECTIVE Health Care Decision (hx) 01/18/2021 AD CHAVIRA DIRECTIVE Health Care Decision (hx) 01/18/2021 AD CHAVIRA DIRECTIVE Health Care Decision (hx) 01/18/2021 AD CHAVIRA DIRECTIVE Health Care Decision (hx) 01/18/2021 AD CHAVIRA DIRECTIVE Care Teams Prism Inspector Relationship Specialty Start Date End Date Physician, Pcp Unknown PCP - General 03/06/25
== END 2025-05-04 13:36 | disposition home or self-care (01) ==
LOC: HO.HPS 12:40
PROVIDERS: Visit Provider Hospitalist
DX: J44.1 Chronic obstructive pulmonary disease with (acute) exacerbation (principal); R91.8 Other nonspecific abnormal finding of lung field; J44.9 Chronic obstructive pulmonary disease, unspecified
CPT/HCPCS: 99205

== ENCOUNTER → 2025-05-04 12:40 | Outpatient (BNVA) | payer MEDICARE, SELFPAY | PROVIDERS: Visit Provider Hospitalist | DX: J44.1 Chronic obstructive pulmonary disease with (acute) exacerbation (principal); R91.8 Other nonspecific abnormal finding of lung field | CPT/HCPCS: 94640; 96372; 99202; J2919 ==